=== PATIENT | female | born 1960 | race Caucasian/White ===

== ENCOUNTER 2019-10-11 21:31 | Emergency (ER) | payer OTHER ==
[2019-10-11] MEDS ORDERED: Ondansetron 4 MG Tab.DIS PO ONE (21:32)
[2019-10-11] MEDS: Sodium Chloride 0.9% 10 ML Syringe FLUSH PRN ×3 (21:50→23:53)
--- NOTE | 2019-10-11 21:55 | EDM.PDOC ---
ED HPI GENERAL MEDICAL PROBLEM - General Chief Complaint: General Stated Complaint: INFLUENZA Time Seen by Provider: 10/11/19 21:53 Source of Information: Reports: Patient History Limitations: Reports: No Limitations - History of Present Illness INITIAL COMMENTS - FREE TEXT/NARRATIVE: 59-year-old female who reports approximately 8:30 to 8:45 PM, she was sitting at her computer and doing some and she didn't feel somewhat lightheaded and dizzy and like her vision was blurry and over the next 5 minutes, she began to feel hot and nauseated and like she needed to have a bowel movement and feelings of almost tunnel vision and worsening nausea and she felt like she could not hold her head up and then she began to have vomiting. She was able to be taken to the bathroom but standing made her symptoms worse and sitting made them better. She continued to feel weak all over but had no localized area of weakness or numbness. Patient was diagnosed with influenza A approximately 8 days ago with her symptoms beginning 2 days prior to that and she was treated with Tamiflu. She reports that her chest symptoms seem to get better but she continued to have cough and has persisted with sore throat and nasal congestion. She states that she has been feeling better but she has not felt well since her symptoms began 10 days ago. She did eat and drink normally today and she was normally active and interactive today prior to this episode and she felt okay with no feelings of dizziness or weakness prior to tonight. She denies any pain. She had no pain associated with the episode. She rated her pain as a 0/10. Specifically, she did not have any chest or abdominal pain or neck, arm or back pain. She still feels dizzy and nauseated upon arrival when standing began to have emesis again. This did seem to improve when she was sitting down. There are no other associated signs or symptoms. There are no other modifying factors. Duration: Constant Location: Reports: Other (No pain. Just nausea and dizziness and weakness which is generalized) Quality: Reports: Other (Not applicable) Severity: Moderate Improves with: Reports: Rest Worsens with: Reports: Other (Standing), Movement Context: Reports: Other (As above) Associated Symptoms: Reports: Cough, Nausea/Vomiting, Weakness, Other (Near syncope) Treatments [employer]: Reports: Other (see below) Throat Pain Score (Numeric/FACES): 8 - Related Data Allergies Allergy/AdvReac Type Severity Reaction Status Date / Time tomato Allergy Mild Rash Verified 10/11/19 22:23 Home Meds: Home Meds Valsartan/Hydrochlorothiazide [Valsartan-Hctz 80-12.5 mg Tab] 1 each PO DAILY [History] Amoxicillin/Clavulanate K [Augmentin 875-125 MG] 1 tab PO BID 10 Days #20 tablet 10/11/19 [Rx] Benzonatate 1 cap PO TID 10/11/19 [History] Fluconazole [Diflucan] 150 mg PO ASDIRECTED #2 tab 10/11/19 [Rx] Past Medical History HEENT History: Reports: Impaired Vision Other HEENT History: LASIK SURGERY Cardiovascular History: Reports: Hypertension Endocrine/Metabolic History: Reports: Obesity/BMI 30+ - Past Surgical History HEENT Surgical History: Reports: LASIK GI Surgical History: Reports: Appendectomy, Cholecystectomy, Colonoscopy Female Surgical History: Reports: Section, Hysterectomy, Oophorectomy, Salpingo-Oophorectomy Social & Family History - Tobacco Use Smoking Status *Q: Never Smoker - Caffeine Use Caffeine Use: Reports: Soda - Alcohol Use Alcohol Use History: Yes Alcohol Use Frequency: Rarely - Recreational Drug Use Recreational Drug Use: No - Living Situation & Occupation Living situation: Reports: Social History Comment: She is here with multiple family members. ED ROS GENERAL - Review of Systems Review Of Systems: See Below Constitutional: Reports: Weakness HEENT: Reports: Throat Pain, Other (Nasal congestion recent influenza) Respiratory: Reports: Cough Cardiovascular: Reports: Lightheadedness GI/Abdominal: Reports: Nausea, Vomiting : Reports: No Symptoms Musculoskeletal: Reports: No Symptoms Skin: Reports: No Symptoms Neurological: Reports: Dizziness. Denies: Headache Hematologic/Lymphatic: Reports: No Symptoms Immunologic: Reports: No Symptoms ED EXAM, GENERAL - Physical Exam Exam: See Below Exam Limited By: No Limitations General Appearance: Alert, WD/WN, Moderate Distress Eye Exam: Bilateral Eye: EOMI, Normal Inspection, PERRL Ears: Normal External Exam, Hearing Grossly Normal Ear Exam: Bilateral Ear: Auricle Normal Nose: No Blood, Nasal Drainage, Other (Nasal mucosal edema) Throat/Mouth: Normal Inspection, Normal Oropharynx, Normal Voice, No Airway Compromise Head: Atraumatic, Normocephalic Neck: Normal Inspection, Supple, Non-Tender, Full Range of Motion Respiratory/Chest: No Respiratory Distress, Lungs Clear, Normal Breath Sounds, No Accessory Muscle Use, Chest Non-Tender Cardiovascular: Normal Peripheral Pulses, Regular Rate, Rhythm, No JVD, No Murmur Peripheral Pulses: 2+: Radial (L), Radial (R), Dorsalis Pedis (L), Dorsalis Pedis (R) GI/Abdominal: Normal Bowel Sounds, Soft, Non-Tender, No Mass Back Exam: Normal Inspection, Full Range of Motion Extremities: Normal Inspection, Normal Range of Motion, Non-Tender, No Pedal Edema, Normal Capillary Refill Neurological: Alert, Oriented, CN II-XII Intact, Normal Cognition, No Motor/ Sensory Deficits Skin Exam: Warm, Dry, Intact, Normal Color, No Rash EKG INTERPRETATION EKG Date: 10/11/19 Time: 21:57 Rhythm: NSR Rate (Beats/Min): 65 [place]: Normal P-Wave: Enlarged QRS: Normal ST-T: Normal QT: Normal Comparison: NA - No Prior EKG Course - Vital Signs Last Recorded V/S: Last Vital Signs Temp 36.3 C 10/11/19 22:58 Pulse 73 10/11/19 22:58 Resp 18 10/11/19 22:58 BP 137/65 10/11/19 22:58 Pulse Ox 99 10/11/19 22:58 Orthostatic Blood Pressure [ 135/90 Sitting] Orthostatic Blood Pressure [ 141/75 Supine] - Orders/Labs/Meds Orders: Active Orders 24 hr Category Date Time Status EKG Documentation Completion [RC] ASDIRECTED Care 10/11/19 21:56 Active Orthostatic Vital Signs [RC] ONETIME Care 10/11/19 21:55 Active Chest 2V [CR] Stat Exams 10/11/19 22:59 Taken Head wo Cont [CT] Stat Exams 10/11/19 22:25 Taken Sodium Chloride 0.9% [Normal Saline] 1,000 ml Med 10/11/19 22:30 Active IV ASDIRECTED Sodium Chloride 0.9% [Saline Flush] Med 10/11/19 21:55 Active 10 ml FLUSH ASDIRECTED PRN cefTRIAXone [Rocephin] Med 10/11/19 23:39 Once 1 gm IVPUSH ONETIME ONE Peripheral IV Insertion Adult [OM.PC] Routine Oth 10/11/19 21:55 Ordered EKG 12 Lead [EK] Routine Ther 10/11/19 21:55 Ordered Medication Orders Sodium Chloride (Normal Saline) 1,000 mls @ 150 mls/hr IV ASDIRECTED RIGOBERTO Sodium Chloride (Saline Flush) 10 ml FLUSH ASDIRECTED PRN PRN Reason: Keep Vein Open Last Admin: 10/11/19 22:16 Dose: 10 ml Admin: 10/11/19 21:50 Dose: 10 ml Labs: Laboratory Tests 10/11/19 10/11/19 10/11/19 Range/Units 22:32 22:48 22:48 WBC 11.4 (4.5-12.0) X10-3/uL RBC 4.06 (3.23-5.20) x10(6)uL Hgb 13.1 (11.5-15.5) g/dL Hct 38.2 (30.0-51.3) % MCV 94.2 (80-96) fL MCH 32.2 (27.7-33.6) pg MCHC 34.2 (32.2-35.4) g/dL RDW 12.1 (11.5-15.5) % Plt Count 392 H (125-369) X10(3)uL MPV 6.7 L (7.4-10.4) fL Neut % (Auto) 66.8 (46-82) % Lymph % (Auto) 23.9 (13-37) % [place] % (Auto) 6.1 (4-12) % Eos % (Auto) 3 (1.0-5.0) % Baso % (Auto) 1 (0-2) % Neut # (Auto) 7.6 (1.6-8.3) # Lymph # (Auto) 2.7 (0.6-5.0) # [place] # (Auto) 0.7 (0.0-1.3) # Eos # (Auto) 0.3 (0.0-0.8) # Baso # (Auto) 0.1 (0.0-0.2) # Sodium 140 (135-145) mmol/L Potassium 3.8 (3.5-5.3) mmol/L Chloride 102 (100-110) mmol/L Carbon Dioxide 30 (21-32) mmol/L BUN 18 (7-18) mg/dL Creatinine 0.9 (0.55-1.02) mg/dL Est Cr Clr Drug Dosing 59.81 mL/min Estimated GFR (MDRD) > 60 (>60) BUN/Creatinine Ratio 20.0 (9-20) Glucose 117 H (80-116) mg/dL Calcium 9.3 (8.6-10.2) mg/dL Magnesium 1.6 L (1.8-2.5) mg/dL Total Bilirubin 0.4 (0.1-1.3) mg/dL AST 27 H (5-25) IU/L ALT 40 H (12-36) U/L Alkaline Phosphatase 53 L (56-112) IU/L Troponin I (4.0-60.3) pg/mL Total Protein 8.4 H (6.0-8.0) g/dL Albumin 3.6 (3.2-4.6) g/dL Globulin 4.8 g/dL Albumin/Globulin Ratio 0.8 Urine Color Yellow (YELLOW) Urine Appearance Cloudy (CLEAR) Urine pH 5.0 (5.0-6.5) Ur Specific [place] 1.020 (1.010-1.025) Urine Protein Negative (NEGATIVE) mg/dL Urine Glucose (UA) Normal (NORMAL) mg/dL Urine Ketones Negative (NEGATIVE) mg/dL Urine Occult Blood Negative (NEGATIVE) Urine Nitrite Negative (NEGATIVE) Urine Bilirubin Negative (NEGATIVE) Urine Urobilinogen Normal (NEGATIVE) mg/dL Ur Leukocyte Esterase Moderate H (NEGATIVE) Urine RBC 0-5 (0-5) Urine WBC 10-20 H (0-5) Ur Squamous Epith Cells Moderate H (NS,R,O) Urine Bacteria Few H (NS) Urine Mucus Few H (NS) 10/11/19 Range/Units 22:48 WBC (4.5-12.0) X10-3/uL RBC (3.23-5.20) x10(6)uL Hgb (11.5-15.5) g/dL Hct (30.0-51.3) % MCV (80-96) fL MCH (27.7-33.6) pg MCHC (32.2-35.4) g/dL RDW (11.5-15.5) % Plt Count (125-369) X10(3)uL MPV (7.4-10.4) fL Neut % (Auto) (46-82) % Lymph % (Auto) (13-37) % [place] % (Auto) (4-12) % Eos % (Auto) (1.0-5.0) % Baso % (Auto) (0-2) % Neut # (Auto) (1.6-8.3) # Lymph # (Auto) (0.6-5.0) # [place] # (Auto) (0.0-1.3) # Eos # (Auto) (0.0-0.8) # Baso # (Auto) (0.0-0.2) # Sodium (135-145) mmol/L Potassium (3.5-5.3) mmol/L Chloride (100-110) mmol/L Carbon Dioxide (21-32) mmol/L BUN (7-18) mg/dL Creatinine (0.55-1.02) mg/dL Est Cr Clr Drug Dosing mL/min Estimated GFR (MDRD) (>60) BUN/Creatinine Ratio (9-20) Glucose (80-116) mg/dL Calcium (8.6-10.2) mg/dL Magnesium (1.8-2.5) mg/dL Total Bilirubin (0.1-1.3) mg/dL AST (5-25) IU/L ALT (12-36) U/L Alkaline Phosphatase (56-112) IU/L Troponin I 4.5 (4.0-60.3) pg/mL Total Protein (6.0-8.0) g/dL Albumin (3.2-4.6) g/dL Globulin g/dL Albumin/Globulin Ratio Urine Color (YELLOW) Urine Appearance (CLEAR) Urine pH (5.0-6.5) Ur Specific [place] (1.010-1.025) Urine Protein (NEGATIVE) mg/dL Urine Glucose (UA) (NORMAL) mg/dL Urine Ketones (NEGATIVE) mg/dL Urine Occult Blood (NEGATIVE) Urine Nitrite (NEGATIVE) Urine Bilirubin (NEGATIVE) Urine Urobilinogen (NEGATIVE) mg/dL Ur Leukocyte Esterase (NEGATIVE) Urine RBC (0-5) Urine WBC (0-5) Ur Squamous Epith Cells (NS,R,O) Urine Bacteria (NS) Urine Mucus (NS) Meds: Medications Generic Name Dose Route Start Last Admin Trade Name Freq PRN Reason Stop Dose Admin Sodium Chloride 1,000 mls @ 150 mls/hr 10/11/19 22:30 Normal Saline IV ASDIRECTED RIGOBERTO Sodium Chloride 10 ml 10/11/19 21:55 10/11/19 22:16 Saline Flush FLUSH 10 ml ASDIRECTED PRN Administration Keep Vein Open Discontinued Medications Generic Name Dose Route Start Last Admin Trade Name Freq PRN Reason Stop Dose Admin Sodium Chloride 1,000 mls @ 999 mls/hr 10/11/19 22:26 10/11/19 22:29 Normal Saline IV 10/11/19 23:26 999 mls/hr .BOLUS ONE Administration Ondansetron HCl 4 mg 10/11/19 22:09 10/11/19 22:12 Zofran IVPUSH 10/11/19 22:10 4 mg ONETIME ONE Administration - Radiology Interpretation Free Text/Narrative:: CT scan of head shows no acute intracranial process. There are air-fluid levels in the maxillary sinuses consistent with acute sinusitis. This was per the radiologist. Chest x-ray, PA and lateral shows no acute disease. - Re-Assessments/Exams Free Text/Narrative Re-Assessment/Exam: 10/11/19 23:25: Patient feels improved. She does feel tired but her dizziness has essentially resolved and her nausea has resolved. She has had no further vomiting. She has been able to walk to the bathroom without having any problems. She has now received the full liter of normal saline as a bolus. Her blood tests are all reassuring. Her urine test showed a contaminated specimen and she is having no urinary symptoms so I did not repeat this. The EKG was normal. The CT scan of her head showed no intracranial process but she did have evidence of maxillary sinusitis. This appears to have been a vasovagal episode related to multiple factors and I don't see anything serious is point. I will treat the patient with Rocephin 1 g IV to start treatment of her sinusitis and I will place her on Augmentin 875 twice a day for 10 days. I will also give her a take-home pack of Zofran for any nausea that she may have. I discussed all of these findings and possible diagnoses with the patient and with her family. I answered their questions. They felt comfortable with the plan for discharge. Departure - Departure Time of Disposition: 23:45 Disposition: Home, Self-Care 01 Condition: Good (Improved) Clinical Impression: Vasovagal episode, Dehydration, Near syncope Vomiting Qualifiers: Vomiting type: unspecified Vomiting Intractability: non-intractable Nausea presence: with nausea Qualified Code(s): R11.2 - Nausea with vomiting, unspecified Acute maxillary sinusitis Qualifiers: Recurrence: not specified as recurrent Qualified Code(s): J01.00 - Acute maxillary sinusitis, unspecified - Discharge Information Prescriptions: Amoxicillin/Clavulanate K [Augmentin 875-125 MG] 1 tab PO BID 10 Days #20 tablet Fluconazole [Diflucan] 150 mg PO ASDIRECTED #2 tab Instructions: Dehydration, Adult, [id number], Sinusitis, Adult, [id number] , Near-Syncope, [id number], Nausea and Vomiting, Adult, [id number] Referrals: Angie Cullen PA [Primary Care Provider] - Forms: ED Department Discharge Additional Instructions: Your blood tests were reassuringly normal. Your EKG was normal. Your chest x- ray was normal. The CT scan of your head showed no evidence of stroke or bleeding but you do have evidence of a sinus infection. As we discussed, I am not completely sure why you had the symptoms tonight but it appears that this was related to your recent illness and possibly to your sinus infection. With your blood tests, EKG and CT scan being normal, you do not appear to have a serious problem at this time. You should rest. You should drink plenty of fluids. You were given an antibiotic in your IV to start treatment of your sinus infection (Rocephin 1 g). Medication as prescribed (Augmentin 875 mg, Zofran 4 mg ODT, Diflucan 150 mg). Follow-up with your primary doctor as needed. Back to the emergency department for trouble breathing, chest pain, recurrent pass out spells, unrelenting vomiting, localized area of weakness or numbness or any other concerning sign or symptom. Sepsis Event Note - Evaluation Sepsis Screening Result: No Definite Risk - Focused Exam Vital Signs: Vital Signs Temp Pulse Resp BP Pulse Ox 10/11/19 22:58 36.3 C 73 18 137/65 99 10/11/19 21:35 36.3 C 78 20 146/86 H 96 Date Exam was Performed: 10/11/19 Time Exam was Performed: 23:40 - My Orders Last 24 Hours: My Active Orders 10/11/19 21:55 Orthostatic Vital Signs [RC] ONETIME Sodium Chloride 0.9% [Saline Flush] 10 ml FLUSH ASDIRECTED PRN Peripheral IV Insertion Adult [OM.PC] Routine EKG 12 Lead [EK] Routine 10/11/19 21:56 EKG Documentation Completion [RC] ASDIRECTED 10/11/19 22:25 Head wo Cont [CT] Stat 10/11/19 22:30 Sodium Chloride 0.9% [Normal Saline] 1,000 ml IV ASDIRECTED 10/11/19 22:59 Chest 2V [CR] Stat 10/11/19 23:39 cefTRIAXone [Rocephin] 1 gm IVPUSH ONETIME ONE - Assessment/Plan Last 24 Hours: My Active Orders 10/11/19 21:55 Orthostatic Vital Signs [RC] ONETIME Sodium Chloride 0.9% [Saline Flush] 10 ml FLUSH ASDIRECTED PRN Peripheral IV Insertion Adult [OM.PC] Routine EKG 12 Lead [EK] Routine 10/11/19 21:56 EKG Documentation Completion [RC] ASDIRECTED 10/11/19 22:25 Head wo Cont [CT] Stat 10/11/19 22:30 Sodium Chloride 0.9% [Normal Saline] 1,000 ml IV ASDIRECTED 10/11/19 22:59 Chest 2V [CR] Stat 10/11/19 23:39 cefTRIAXone [Rocephin] 1 gm IVPUSH ONETIME ONE
[2019-10-11] MEDS ORDERED: Ondansetron 4 MG/2 ML SDV IVPUSH ONE (22:09)
[2019-10-11] MEDS ORDERED: Sodium Chloride 0.9% 1,000 ML IV ONE (22:26)
[2019-10-11] MEDS ORDERED: Sodium Chloride 0.9% 1,000 ML IV SCH (22:30)
[2019-10-11] MEDS ORDERED: cefTRIAXone 2 GM Vial IVPUSH ONE (23:39)
--- NOTE | 2019-10-12 09:41 | CR ---
INDICATION: Cough times 10 days. CHEST, TWO VIEWS: PA and lateral views of the chest were obtained 10/11/19 and reveal the heart and mediastinum and bony thorax to be unremarkable. Evidence of exogenous obesity is noted. No consolidating pneumonia or effusion was identified. Bronchial wall cuffing is noted in the lung bases, however, raising question of active peribronchial disease and/or fibrosis - correlate clinically. MTDD
== END 2019-10-12 00:10 | disposition home or self-care (01) ==
LOC: FB.ED 21:31
DX: E86.0 Dehydration (principal); R11.2 Nausea with vomiting, unspecified; J01.00 Acute maxillary sinusitis, unspecified; R55 Syncope and collapse; I10 Essential (primary) hypertension; E66.9 Obesity, unspecified; Z68.33 Body mass index [BMI] 33.0-33.9, adult; Z79.899 Other long term (current) drug therapy
CPT/HCPCS: 36415; 70450; 71046; 80053; 81001; 83735; 84484; 85025; 93005; 96361; 96374; 96375; 99285-25; A9270-GY; J0696; J2405; J7030